=== PATIENT | male | born 1980 | race Two or more races ===

== ENCOUNTER 2020-01-28 11:45 | Emergency (ER) | payer OTHER ==
[2020-01-28 12:05] VITALS: BP 143/86; PULSE 97; TEMP 98.4; BMI 30.5
[2020-01-28] MEDS ORDERED: LIDOCAINE 5% TOPICAL PATCH TP ONE (12:42)
[2020-01-28] MEDS ORDERED: METHOCARBAMOL 500 MG TABLET PO ONE (12:42)
[2020-01-28] MEDS ORDERED: KETOROLAC TROMETHAMINE 60 MG/2 ML VIAL IM ONE (12:43)
[2020-01-28] MEDS ORDERED: KETOROLAC TROMETHAMINE 30 MG/1 ML VIAL ONE (12:52)
[2020-01-28] MEDS ORDERED: LIDOCAINE 5% TOPICAL PATCH ONE (12:52)
[2020-01-28] MEDS ORDERED: METHOCARBAMOL 500 MG TABLET ONE (12:52)
[2020-01-28] MEDS ORDERED: LIDOCAINE PATCH REMOVAL MC SCH (22:00)
== END 2020-01-28 14:15 | disposition home or self-care (01) ==
LOC: JERFT 11:45
PROC: 3E0233Z Introduction of Anti-inflammatory into Muscle, Percutaneous Approach (ICD-10-PCS; principal; 2020-01-28)
DX: M54.2 Cervicalgia (principal); S13.4XXA Sprain of ligaments of cervical spine, initial encounter
CPT/HCPCS: 72050-TC-FY; 99284-25